=== PATIENT | female | born 1965 | race Caucasian/White ===

== ENCOUNTER → 2017-04-16 | Outpatient (CLI) | payer BC ==
[2017-04-16 13:29] VITALS: BP 142/82; PULSE 82; RESP 20; TEMP 98.6; BMI 36.1
--- NOTE | 2017-04-16 13:43 | P.BASOAP ---
Subjective Principal diagnosis: Morbid obesity Patient is on chronic steroids for an anti-inflammatory condition. She takes prednisone 10 mg daily. She has noticed a decrease in restriction. She has a history of a previous leaking band. The band tubing and port replaced. She thought she had about 5 mL of fluid in the band. She is asking for a band adjustment. Denies reflux. No vomiting. Weight has increased from a low of about 175-210. Objective - Vital Signs Vital signs: Vital Signs Temp 98.6 F 04/16/17 13:24 Pulse 82 04/16/17 13:24 Resp 20 04/16/17 13:24 BP 142/82 04/16/17 13:24 Pulse Ox Intake & Output 04/15/17 04/16/17 04/16/17 18:59 06:59 18:59 Weight 95.527 kg - Exam Abdomen: Soft, nontender, nondistended Assessment/Plan (1) Morbid obesity Narrative/Plan: Will proceed with band adjustment at this time. The patient's lap band port was palpated. The site was aseptically prepped. 1% lidocaine was infiltrated into the subcutaneous tissues through a diabetic syringe. The Mullins needle was advanced into the port. Aspiration took place. A total of 3 mL ml of fluid was present within the band. An additional 0.5 mL was added. Pressure was held and a sterile dressing was applied. Plan: Date: 04/16/17 Initial Weight: 95.527 kg Initial BMI: 36.1 Current Weight: 95.527 kg Current BMI: 36.1 Type of Surgery: Total Volume in Band: Previous Volume: Volume Removed: Volume Added: Band Size:
== END | disposition home or self-care (01) ==
LOC: BARWHC3 13:05 → MERGE 13:35
PROVIDERS: ATTEND Surgery
DX: E66.01 Morbid (severe) obesity due to excess calories (principal); Z68.36 Body mass index [BMI] 36.0-36.9, adult
CPT/HCPCS: 97803; 99202

== ENCOUNTER → 2017-05-03 | Outpatient (CLI) | payer BC ==
[2017-05-03 09:38] VITALS: BP 148/80; PULSE 79; RESP 16; TEMP 99; BMI 36.8
--- NOTE | 2017-05-03 11:36 | FL ---
EXAMINATION TYPE: FL barium swallow DATE OF EXAM: 05/03/2017 LAP BANDING ESOPHAGRAM CLINICAL HISTORY: Gastroesophageal reflux TECHNIQUE: Single contrast barium swallow examination was performed with targeted evaluation of the d istal esophagus and gastroesophageal junction for evaluation of the lap pad utilizing 2.6 minutes of fluoroscopy time. 27 images were saved. Thin barium was initially utilized and subsequently further d iluted as the patient stated she feels reflux with water and tea. COMPARISON: None. FINDINGS: Pre-procedure preventative maintenance technician image shows lap band in satisfactory position in proximal stomach ju st below the gastroesophageal junction. After the patient then drank oral contrast flowed readily kaiden ng the course of the esophagus into the gastric fundus. There is appropriate flow of contrast along the course of the lap band, there is no evidence of contrast extravasation to suggest leak. There is no significant gastric prolapse appreciated. No gastroesophageal reflux is seen. Supine images and d iluted barium were also utilized with no abnormality appreciated. IMPRESSION: No evidence of intraesophageal reflux, gastroesophageal reflux, leak, prolapse or obstruc tion/stricture.
--- NOTE | 2017-05-03 11:48 | P.BASOAP ---
Subjective Progress Note Date: 05/03/17 Principal diagnosis: Dysphagia Patient returns to the clinic after a lap band adjustment 3-4 weeks ago. She had 0.5 mL added at that time. She does take daily prednisone. Recently she has noticed increased dysphagia and heartburn. She was sent for esophagram shortly after arrival today for evaluation. The upper GI shows no evidence of significant obstruction. No prolapse or erosion were seen. Objective - Vital Signs Vital signs: Vital Signs Temp 99 F 05/03/17 09:29 Pulse 79 05/03/17 09:29 Resp 16 05/03/17 09:29 BP 148/80 05/03/17 09:29 Pulse Ox Intake & Output 05/02/17 05/03/17 05/03/17 18:59 06:59 18:59 Weight 97.25 kg - Exam Abdomen: Soft, nontender, nondistended Assessment/Plan (1) Dysphagia Narrative/Plan: Upper GI results discussed with the patient. We'll proceed with band adjustment. She will talk to her physician about switching to a liquid prednisone. If the loosening of the band does not help the patient's symptoms will consider adding Carafate as well. Also reserve upper endoscopy for persistent symptoms. The patient's lap band port was palpated. The site was aseptically prepped. 1% lidocaine was infiltrated into the subcutaneous tissues through a diabetic syringe. The Mullins needle was advanced into the port. Aspiration took place. A total of 1 ml of fluid was removed. Pressure was held and a sterile dressing was applied. Plan: Date: 05/03/17 Initial Weight: 95.527 kg Initial BMI: 36.1 Current Weight: 97.25 kg Current BMI: 36.8 Type of Surgery: Total Volume in Band: 2.5 Previous Volume: 3.5 Volume Removed: 1 Volume Added: Band Size:
== END | disposition home or self-care (01) ==
LOC: BARWHC3 08:56
PROVIDERS: ATTEND Surgery
DX: R13.10 Dysphagia, unspecified (principal)
CPT/HCPCS: 74220; 99213

== ENCOUNTER → 2017-10-29 | Outpatient (CLI) | payer BC ==
[2017-10-29 13:36] VITALS: BP 138/79; PULSE 80; RESP 16; TEMP 98.7; BMI 37.2
--- NOTE | 2017-10-29 15:51 | P.BASOAP ---
Subjective Progress Note Date: 10/29/17 Principal diagnosis: Morbid obesity Patient returns for evaluation. Last seen in April. At that time her band was loosened from 3.5-2.5 mL. She still takes prednisone daily. She tried liquid prednisone without success. She believes she is too loose at this point. Would like an adjustment. 3 pound weight gain since last visit. Objective - Vital Signs Vital signs: Vital Signs Temp 98.7 F 10/29/17 13:29 Pulse 80 10/29/17 13:29 Resp 16 10/29/17 13:29 BP 138/79 10/29/17 13:29 Pulse Ox Intake & Output 10/28/17 10/29/17 10/29/17 18:59 06:59 18:59 Weight 98.43 kg - Exam Abdomen: Soft, nontender, nondistended Assessment/Plan (1) Morbid obesity Narrative/Plan: Will proceed with LAP-BAND adjustment at this time.The patient's lap band port was very difficult to palpate. I in fact tried 3 separate locations before I identified the site of the port. For future reference the port was at the same level as a circular 1 cm scar in the right upper quadrant laterally midway between that scar and the midline. The site was aseptically prepped. 1% lidocaine was infiltrated into the subcutaneous tissues through a diabetic syringe. The Mullins needle was advanced into the port. Aspiration took place. A total of 0.5 ml of fluid was added for a total of 3 mL. Pressure was held and a sterile dressing was applied. Plan: Date: 10/29/17 Initial Weight: 95.527 kg Initial BMI: 36.1 Current Weight: 98.43 kg Current BMI: 37.2 Type of Surgery: Total Volume in Band: 3.0 Previous Volume: 2.5 Volume Removed: Volume Added: 0.5 Band Size:
== END | disposition home or self-care (01) ==
LOC: BARWHC3 12:47
PROVIDERS: ATTEND Surgery
DX: Z48.815 Encounter for surgical aftercare following surgery on the digestive system (principal); E66.01 Morbid (severe) obesity due to excess calories; Z68.37 Body mass index [BMI] 37.0-37.9, adult; Z79.899 Other long term (current) drug therapy
CPT/HCPCS: 99212

== ENCOUNTER → 2018-10-11 | Outpatient (CLI) | payer OTHER ==
[2018-10-11 11:54] LABS: HCT 43.6 % (34.0-46.0); HGB 14.3 gm/dL (11.4-16.0); MCH 30.8 pg (25.0-35.0); MCHC 32.8 g/dL (31.0-37.0); MCV 93.8 fL (80.0-100.0); Mean Platelet Volume 6.3; Platelet Count 274 k/uL (150-450); RBC 4.65 m/uL (3.80-5.40); RDW 13.5 % (11.5-15.5); WBC 12.2 k/uL (3.8-10.6)
[2018-10-11 17:21] LABS: ALT 29 U/L (8-44); AST 22 U/L (13-35); Albumin/Globulin Ratio 2.14 (1.60-3.17); Alkaline Phosphatase 54 U/L (41-126); Bilirubin, Conjugated <0.20 mg/dL (0.20-0.40); Carbon Dioxide 30.9 mmol/L (21.6-31.8); Chloride 104 mmol/L (96-109); Globulin 2.1 g/dL (1.6-3.3); Potassium 3.8 mmol/L (3.5-5.5); Sodium 142 mmol/L (135-145); Total Bilirubin 0.3 mg/dL (0.3-1.2); Total Protein 6.6 g/dL (6.2-8.2)
[2018-10-11 22:40] LABS: Hemoglobin A1C 6.1 % (4.0-6.0)
== END | disposition home or self-care (01) ==
LOC: LABWHC1 11:08
PROVIDERS: ATTEND Internal Medicine
DX: E11.9 Type 2 diabetes mellitus without complications (principal); I10 Essential (primary) hypertension; E03.9 Hypothyroidism, unspecified
CPT/HCPCS: 36415; 80051; 80076; 82565; 83036; 84439; 84443; 84520; 85027

== ENCOUNTER → 2018-10-21 | Outpatient (CLI) | payer OTHER ==
--- NOTE | 2018-10-21 08:35 | CT ---
EXAMINATION TYPE: CT lumbar spine w con DATE OF EXAM: 10/21/2018 COMPARISON: None HISTORY: 53-year-old female Low back pain for 15 years TECHNIQUE: Contiguous axial scanning of the lumbar spine performed with IV Contrast, patient injected with 100 mL of Isovue 300. Coronal/sagittal reconstructions performed. CT DLP: 1084.8 mGycm Automated exposure control for dose reduction was used. FINDINGS: Indeterminate 1 cm nodule left adrenal gland, statistically, represents a benign adrenal adenoma. Oth erwise, no prevertebral or paravertebral soft tissue abnormality seen. Mild degenerative changes at the SI joints. Postsurgical changes of L5-S1 posterior and interbody fusion. There is mature interbody bony ankylosi s at this level. Left-sided laminotomy. Hypertrophic facet arthropathy above the fusion as well as bulging discs throughout the remainder of the lumbar spine.. Vertebral body heights are preserved and alignment is maintained. At L2-L3, there is diffuse disc bulge impressing on the ventral thecal sac. This may cause mild narro wing of the spinal canal. There is minimal bilateral inferior neuroforaminal narrowing. Additional fa cet arthropathy. At L3-L4, mild disc bulge and facet degenerative change. Changes result in mild bilateral neuroforami nal stenosis without spinal canal stenosis. At L4-L5, above the fusion, mild bulging disc with hypertrophic facet arthropathy. Changes result in [id number] right and minimal left neuroforaminal narrowing. No spinal canal stenosis evident. At L5-S1, there is bony hyperostosis with moderate narrowing of the bilateral neuroforamen but no obv ious nerve root impingement. IMPRESSION: 1. STATUS POST L5-S1 POSTERIOR AND INTERBODY FUSION. THERE IS MATURE BONY ANKYLOSIS PRESENT BETWEEN T HE VERTEBRAL BODIES. LEFT-SIDED LAMINOTOMY. BONY HYPEROSTOSIS MODERATELY NARROWS THE BILATERAL NEURAL FORAMEN. HOWEVER, THERE IS NO OBVIOUS NERVE ROOT IMPINGEMENT HERE. 2. FACET ARTHROPATHY IN DISC BULGING THROUGHOUT THE REMAINDER OF THE LUMBAR SPINE. AT L4-L5, THIS CON TRIBUTES TO A MILD TO MODERATE RIGHT NEUROFORAMINAL STENOSIS. MILD BILATERAL NEURAL FORAMINAL STENOSI S AT L3-L4. 3. POSSIBLE MILD SPINAL CANAL STENOSIS AT L2-L3. 4. A 1 CM NODULE OF THE LEFT ADRENAL GLAND IS NONSPECIFIC BUT STATISTICALLY REPRESENTS A BENIGN ADREN AL ADENOMA. [address] FOLLOW-UP CT ABDOMEN CAN BE PERFORMED TO REASSESS.
== END | disposition home or self-care (01) ==
LOC: RADCTMAIN 06:53
PROVIDERS: ATTEND Internal Medicine
DX: M48.061 Spinal stenosis, lumbar region without neurogenic claudication (principal); M51.26 Other intervertebral disc displacement, lumbar region; M46.86 Other specified inflammatory spondylopathies, lumbar region; M48.17 Ankylosing hyperostosis [Forestier], lumbosacral region; M43.26 Fusion of spine, lumbar region; Z98.1 Arthrodesis status; Z88.0 Allergy status to penicillin; Z88.2 Allergy status to sulfonamides; Z88.5 Allergy status to narcotic agent
CPT/HCPCS: 72132; Q9967

== ENCOUNTER → 2018-12-22 | Outpatient (CLI) | payer OTHER ==
[2018-12-18 14:43] VITALS: BMI 34.3
[2018-12-22 13:13] VITALS: BP 167/82; PULSE 79; RESP 16
--- NOTE | 2018-12-22 13:33 | P.PAINCN ---
History of Present Illness - Reason for Consult Consult date: 12/22/18 - History of Present Illness Sanna is a 52-year-old female presents today as an initial consult. She presents today with a chief complaint of low back pain, coccygeal pain, as well as peripheral neuropathy. She reports she's had this pain for many years. She has a history of low back surgery about 10 years ago and had L5-S1 fusion. She reports that the fusion significantly improved her overall back pain. She's con tinues to have pain now below the level of the fusion over the hips. She has pain in the tailbone area which she reports she had a fall many years back. His had injections for her coccydynia in the past which were helpful. She's had history of peripheral neuropathy for many years unsure of the reason why. She is not diabetic. She has been on chronic prednisone therapy and takes 9 mg a day for spondyloarthropathy. She reports that she is unable to work full-time and works from home now secondary to her pain. She does not use pain medications. This point she denies a significant bowel or bladder incontinence. Denies any lower extremity weakness. She has been in physical therapy in the past and has not been there recently but she reports it did not help very much. 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, neuropathy yuliya feet, hx of thyroid ca, radiation 2000 History of Any Multi-Drug Resistant Organisms: None Reported Past Surgical History: Back Surgery, Bariatric Surgery, Section, Orthopedic Surgery Additional Past Surgical History / Comment(s): Epidural pain shots, right heal surgery, 1980 lap band, panniculectomy 2011, thyroidectomy, back surgery rods and screws 2009 Past Anesthesia/Blood Transfusion Reactions: Previous Problems w/ Anesthesia Additional Past Anesthesia/Blood Transfusion Reaction / Comm: "versed makes me stay awake for days" Smoking Status: Never smoker - Past Family History Mother Family Medical History: No Reported History Medications and Allergies Home Medications Medication Instructions Recorded Confirmed Type Metoprolol Succinate (ER) [Toprol 100 mg PO DAILY 04/17/17 12/22/18 History XL] Milnacipran HCl [Savella] 12.5 mg PO BID 04/17/17 12/22/18 History Olmesartan Medoxomil [Benicar] 40 mg PO DAILY 04/17/17 12/22/18 History Levothyroxine Sodium [Synthroid] 175 mcg PO DAILY 12/18/18 12/22/18 History cloNIDine HCL [Catapres] 0.1 mg PO BID 12/18/18 12/22/18 History predniSONE 9 mg PO DAILY 12/18/18 12/22/18 History valACYclovir HCL [Valacyclovir] 1,000 mg PO DAILY 12/18/18 12/22/18 History traMADol HCL [Ultram] 50 mg PO DAILY 12/22/18 12/22/18 History Allergies Allergy/AdvReac Type Severity Reaction Status Date / Time adhesive tape Allergy blisters Verified 12/22/18 13:02 Penicillins Allergy Rash/Hives Verified 12/22/18 13:02 Sulfa (Sulfonamide Allergy Rash/Hives Verified 12/22/18 13:02 Antibiotics) Physical Exam Vitals: Vital Signs Pulse Resp BP Pulse Ox 12/22/18 13:04 79 16 167/82 98 General: Awake and alert oriented 3 no distress Respiratory exam: No audible wheezing no accessory muscle usage Cardiovascular exam: regular rate, palpable bilateral pulses, no lower extremity edema Abdominal exam: No distention nontender to palpation Cervical spine: Normal alignment, Spurling's negative, facet loading negative, Instructor Ballroom Dancing strength is 5/5, coley negative Lumbar spine: Surgical scars are well-healed, Loss of lumbar lordosis, normal alignment, tender to palpation over bilateral paraspinal muscles, facet loading is positive bilaterally. Straight leg raise is negative. Limited range of motion due to pain with flexion, extension and side bending. Sacroiliac joints: There is tenderness to palpation over bilateral SI joints, Javon's test is positive, Gaenslen's positive. Coccyx: She has pain over the coccyx. He is tender to palpation, there is no movement of the coccyx noted. There is no erythema or fluctuance Neuro exam: Normal sensation in bilateral upper extremities, deep tendon reflexes are 2+ bilateral upper extremities. Normal sensation in bilateral lower extremities. Deep tendon reflexes are 2+ in lower extremities Psych exam: Cooperative, appropriate mood Assessment and Plan Assessment: #1 sacroiliitis #2 coccydynia #3 lumbar spondylosis #4 peripheral neuropathy Plan: Long discussion with the patient regarding her overall symptoms. I believe this point majority of her pain is coming from her sacroiliac joints. I believe the coccydynia is unrelated. We discussed doing SI joint injections bilaterally first and and figuring out how much of her pain is relieved. After that we will proceed to treating her coccydynia. I discussed doing a bilateral coccygeal nerve block and potentially radiofrequency ablation if there is only transient relief. As for peripheral neuropathy I've advised her to trial alpha lipoic acid supplementation 600 mg daily for at least one month and see how much improvement she gets. I've advised her to see a neurologist to get a full workup for neuropathy as well. She has had an EMG and does not have the report with her as of yet PQRS Measure Charge Sheet PQRS Narrative: Smoking Status Never smoker Do You Want the Pneumonia Vaccine Up to Date Vaccine AT THIS TIME? Blood Pressure 167/82 Pain Intensity [Lower Back] 7 Scale Used Numeric (1 - 10) Hx Alcohol Use (MH) No Home Medications: Ambulatory Orders Metoprolol Succinate (ER) [Toprol XL] 100 mg PO DAILY 04/17/17 Milnacipran HCl [Savella] 12.5 mg PO BID 04/17/17 Olmesartan Medoxomil [Benicar] 40 mg PO DAILY 04/17/17 Levothyroxine Sodium [Synthroid] 175 mcg PO DAILY 12/18/18 cloNIDine HCL [Catapres] 0.1 mg PO BID 12/18/18 predniSONE 9 mg PO DAILY 12/18/18 valACYclovir HCL [Valacyclovir] 1,000 mg PO DAILY 12/18/18 traMADol HCL [Ultram] 50 mg PO DAILY 12/22/18
== END | disposition home or self-care (01) ==
LOC: PNWHC3 12:05
PROVIDERS: ATTEND Hospitalist
DX: M46.1 Sacroiliitis, not elsewhere classified (principal); M47.816 Spondylosis without myelopathy or radiculopathy, lumbar region; M53.3 Sacrococcygeal disorders, not elsewhere classified; G62.9 Polyneuropathy, unspecified; I10 Essential (primary) hypertension; Z85.850 Personal history of malignant neoplasm of thyroid; Z92.3 Personal history of irradiation; Z98.84 Bariatric surgery status; Z79.891 Long term (current) use of opiate analgesic; Z79.52 Long term (current) use of systemic steroids; Z79.899 Other long term (current) drug therapy; Z88.0 Allergy status to penicillin; Z88.2 Allergy status to sulfonamides; Z91.048 Other nonmedicinal substance allergy status
CPT/HCPCS: 99211

== ENCOUNTER 2018-12-28 12:42 | Emergency (ER) | payer OTHER ==
[2018-12-28 13:15] VITALS: BP 150/89; PULSE 79; RESP 18; TEMP 98.8
[2018-12-28] MEDS ORDERED: LIDOCAINE 1% INJ 10MG/ML (20 ML MDV) SQ ONE (14:06)
--- NOTE | 2018-12-28 15:00 | XR ---
EXAMINATION TYPE: XR hand limited RT DATE OF EXAM: 12/28/2018 COMPARISON: 07/16/2013 HISTORY: Laceration 2 views were obtained. Metacarpals are intact. There is some narrowing of the DIP joint spaces. There are no erosions. There is no subluxation. There is no evidence of radiopaque foreign body. : IMPRESSION: No fracture seen. Minor degenerative changes. No change compared to old exam.
--- NOTE | 2018-12-28 15:03 | ED ---
Wound/Laceration HPI - General Chief Complaint: Wound/Laceration Stated Complaint: rt middle finger lac Time Seen by Provider: 12/28/18 13:42 Source: patient Mode of arrival: ambulatory Limitations: no limitations - History of Present Illness Initial Comments: 53-year-old female presenting for right middle finger laceration. States she cut it on a clean knife. She states it is superficial however the distal aspect appears deeper she was not sure she needed sutures. Patient states tetanus is up-to-date. She denies any limitations range of motion numbness tingling or loss sensation. Denies any other areas of injury. Remaining review of systems negative upon arrival patient appears well - Related Data Home Medications Medication Instructions Recorded Confirmed Metoprolol Succinate (ER) [Toprol 100 mg PO DAILY 04/17/17 12/22/18 XL] Milnacipran HCl [Savella] 12.5 mg PO BID 04/17/17 12/22/18 Olmesartan Medoxomil [Benicar] 40 mg PO DAILY 04/17/17 12/22/18 Levothyroxine Sodium [Synthroid] 175 mcg PO DAILY 12/18/18 12/22/18 cloNIDine HCL [Catapres] 0.1 mg PO BID 12/18/18 12/22/18 predniSONE 9 mg PO DAILY 12/18/18 12/22/18 valACYclovir HCL [Valacyclovir] 1,000 mg PO DAILY 12/18/18 12/22/18 traMADol HCL [Ultram] 50 mg PO DAILY 12/22/18 12/22/18 Previous Rx's Medication Instructions Recorded Cephalexin [Keflex] 500 mg PO Q8H 5 Days #15 cap 12/28/18 Allergies Allergy/AdvReac Type Severity Reaction Status Date / Time adhesive tape Allergy blisters Verified 12/28/18 13:14 Penicillins Allergy Rash/Hives Verified 12/28/18 13:14 Sulfa (Sulfonamide Allergy Rash/Hives Verified 12/28/18 13:14 Antibiotics) Review of Systems ROS Statement: Those systems with pertinent positive or pertinent negative responses have been documented in the HPI. ROS Other: All systems not noted in ROS Statement are negative. 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, neuropathy yuliya feet, hx of thyroid ca, radiation 2000 History of Any Multi-Drug Resistant Organisms: None Reported Past Surgical History: Back Surgery, Bariatric Surgery, Section, Orthopedic Surgery Additional Past Surgical History / Comment(s): Epidural pain shots, right heal surgery, 1981 lap band, panniculectomy 2012, thyroidectomy, back surgery rods and screws 2009 Past Anesthesia/Blood Transfusion Reactions: Previous Problems w/ Anesthesia Additional Past Anesthesia/Blood Transfusion Reaction / Comment(s): "versed makes me stay awake for days" Past Psychological History: No Psychological Hx Reported Smoking Status: Never smoker Past Alcohol Use History: None Reported Past Drug Use History: None Reported - Past Family History Mother Family Medical History: No Reported History General Exam - General Exam Comments Initial Comments: General: The patient is awake and alert, in no distress, and does not appear acutely ill. Eye: Pupils are equal, round and reactive to light, extra-ocular movements are intact. No nystagmus. There is normal conjunctiva bilaterally. No signs of icterus. Cardiovascular: There is a regular rate and rhythm. No murmur, rub or gallop is appreciated. Respiratory: Lungs are clear to auscultation, respirations are non-labored, breath sounds are equal. No wheezes, stridor, rales, or rhonchi. Musculoskeletal: Normal ROM, no tenderness. Strength 5/5. Sensation intact. Pulses equal bilaterally 2+. Neurological: A&O x 3. CN II-XII intact, There are no obvious motor or sensory deficits. Coordination appears grossly intact. Speech is normal. Skin: Skin is warm and dry and no rashes. 1.7 cm laceration with skin flap of the right middle finger just distal to the PIP joint appear superficial no evidence of foreign body Psychiatric: Cooperative, appropriate mood & affect, normal judgment. Limitations: no limitations Course Vital Signs 12/28/18 12/28/18 13:13 15:27 Temperature 98.8 F 98.8 F Pulse Rate 79 79 Respiratory 18 18 Rate Blood Pressure 150/89 150/89 O2 Sat by Pulse 97 97 Oximetry Procedures - Laceration Laceration #1 Consent Obtained: verbal consent Indication: laceration Site: hand (Right middle finger) Size (cm): 2 Description: linear Depth: simple, single layer Anesthetic Used: lidocaine 1% Anesthesia Technique: local infiltration Amount (mls): 2 Pre-repair: wound explored, irrigated extensively, deep structures intact Type of Sutures: nylon Size of Sutures: 5-0 Number of Sutures: 3 Patient Tolerated Procedure: well, no complications Medical Decision Making - Medical Decision Making X-rays reveal no acute osseous injury. Laceration appears superficial however warrants sutures. No evidence of foreign body. No evidence of tendon injury isolated MTP DIP and PIP joints there is no decrease in strength. Patient is able to feel proximal and distal to injury site. Laceration was repaired. Tetanus is updated per patient. At this time feel patient is stable for discharge with outpatient primary care follow-up for evaluation of fall. Patient states she is on steroids chronically for an autoimmune disease. Patient is provided a perception for Keflex if she there are any signs of erythema that developed near this site of suture placement. Patient is agreeable with care plan and return for suture removal in 7-10 days. Patient was discharged appearing well Disposition Clinical Impression: Laceration of middle finger Disposition: HOME SELF-CARE Condition: Good Instructions (If sedation given, give patient instructions): Care For Your Stitches (ED), Laceration (ED) Additional Instructions: Please use medication as discussed. Please follow-up with family doctor in the next 2 days, return for suture removal in 7-10 days. Please return to emergency room if the symptoms increase or worsen or for any other concerns. Prescriptions: Cephalexin [Keflex] 500 mg PO Q8H 5 Days #15 cap Is patient prescribed a controlled substance at d/c from ED?: No Referrals: Isabella Price MD [Primary Care Provider] - 1-2 days Time of Disposition: 15:02
== END 2018-12-28 15:26 | disposition home or self-care (01) ==
LOC: EC 12:42
DX: S61.212A Laceration without foreign body of right middle finger without damage to nail, initial encounter (principal); I10 Essential (primary) hypertension; Z85.850 Personal history of malignant neoplasm of thyroid; Z79.52 Long term (current) use of systemic steroids; Z79.890 Hormone replacement therapy; Z79.899 Other long term (current) drug therapy; Z88.0 Allergy status to penicillin; Z88.2 Allergy status to sulfonamides; Z91.048 Other nonmedicinal substance allergy status; W26.0XXA Contact with knife, initial encounter
CPT/HCPCS: 73120; 99282; 12001; J2001

== ENCOUNTER 2019-04-08 09:33 | Emergency (ER) | payer OTHER ==
[2019-04-08 09:39] VITALS: TEMP 97.3
[2019-04-08] MEDS ORDERED: diphenhydrAMINE 50 MG/ML 1 ML VIAL IVP STA (09:59)
[2019-04-08] MEDS ORDERED: ALBUTEROL NEBULIZED 2.5 MG/3 ML INHALATION STA (09:59)
[2019-04-08] MEDS ORDERED: methylPREDNISolone SOD SUCCI 125 MG/2 ML VIAL IV STA (09:59)
--- NOTE | 2019-04-08 10:01 | ED ---
Allergic Reaction HPI - General Chief complaint: Allergic Reaction Stated complaint: bee stings/rash & chest heaviness Time Seen by Provider: 04/08/19 09:49 Source: patient, RN notes reviewed, old records reviewed Mode of arrival: ambulatory Limitations: no limitations - History of Present Illness Initial Comments: Patient is a 53-year-old female presents emergency department today with chief complaint of ALLERGIC reaction to a bee sting approximately 30 minutes ago. Patient reports that she was stung on her right middle finger. Patient states that swollen. She states she is going to her doctor with a history of bad ALLERGIC reactions. Patient reports that she subsequently developed severe hives, started having some chest pain which prompted her to dress the emergency department set of her primary care doctors. Patient states it feels like she is coughing frequently but denies any specific shortness of breath or tongue swelling. - Related Data Home Medications Medication Instructions Recorded Confirmed Levothyroxine Sodium [Synthroid] 175 mcg PO DAILY 12/18/18 04/08/19 cloNIDine HCL [Catapres] 0.1 mg PO BID 12/18/18 04/08/19 predniSONE 8 mg PO DAILY 12/18/18 04/08/19 Metoprolol Succinate [Toprol Xl] 50 mg PO BID 04/08/19 04/08/19 Milnacipran HCl [Savella] 50 mg PO BID 04/08/19 04/08/19 Olmesartan/Hydrochlorothiazide 1 tab PO DAILY 04/08/19 04/08/19 [Olmesartan-Hctz 40-25 mg Tab] Previous Rx's Medication Instructions Recorded EPINEPHrine (Auto Inject) [Epipen] 0.3 mg IM ONCE PRN #2 pen 04/08/19 Famotidine [Pepcid] 20 mg PO DAILY #5 tablet 04/08/19 diphenhydrAMINE [Benadryl] 25 mg PO QID PRN #40 capsule 04/08/19 predniSONE 20 mg PO BID #10 tab 04/08/19 Allergies Allergy/AdvReac Type Severity Reaction Status Date / Time adhesive tape Allergy blisters Verified 04/08/19 09:47 morphine Allergy Unknown Verified 04/08/19 09:47 Penicillins Allergy Rash/Hives Verified 04/08/19 09:47 Sulfa (Sulfonamide Allergy Rash/Hives Verified 04/08/19 09:47 Antibiotics) Review of Systems ROS Statement: Those systems with pertinent positive or pertinent negative responses have been documented in the HPI. ROS Other: All systems not noted in ROS Statement are negative. 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, neuropathy yuliya feet, hx of thyroid ca, radiation 2000 History of Any Multi-Drug Resistant Organisms: None Reported Past Surgical History: Back Surgery, Bariatric Surgery, Section, Orthopedic Surgery Additional Past Surgical History / Comment(s): Epidural pain shots, right heal surgery, 1980 lap band, panniculectomy 2011, thyroidectomy, back surgery rods and screws 2009 Past Anesthesia/Blood Transfusion Reactions: Previous Problems w/ Anesthesia Additional Past Anesthesia/Blood Transfusion Reaction / Comment(s): "versed makes me stay awake for days" Past Psychological History: No Psychological Hx Reported Smoking Status: Never smoker Past Alcohol Use History: None Reported Past Drug Use History: None Reported - Past Family History Mother Family Medical History: No Reported History General Exam - General Exam Comments Initial Comments: Pleasant 53-year-old female. Alert and oriented 3. No significant distress. Limitations: no limitations General appearance: alert, in no apparent distress Head exam: Present: atraumatic, normocephalic, normal inspection Eye exam: Present: normal appearance, PERRL, EOMI. Absent: scleral icterus, conjunctival injection, periorbital swelling ENT exam: Present: normal exam, mucous membranes moist Neck exam: Present: normal inspection. Absent: tenderness, meningismus, lymphadenopathy Respiratory exam: Present: normal lung sounds bilaterally. Absent: respiratory distress, wheezes, rales, rhonchi, stridor Cardiovascular Exam: Present: regular rate, normal rhythm, normal heart sounds. Absent: systolic murmur, diastolic murmur, rubs, gallop, clicks GI/Abdominal exam: Present: soft, normal bowel sounds. Absent: distended, tenderness, guarding, rebound, rigid Extremities exam: Present: normal inspection, full ROM, normal capillary refill. Absent: tenderness, pedal edema, joint swelling, calf tenderness Back exam: Present: normal inspection Neurological exam: Present: alert, oriented X3, CN II-XII intact Psychiatric exam: Present: normal affect, normal mood Skin exam: Present: warm, dry, intact, normal color, rash (Diffuse hives over her arms and chest.) Course Vital Signs 04/08/19 04/08/19 04/08/19 09:36 10:13 10:23 Temperature 97.3 F L Pulse Rate 92 77 Respiratory 20 16 Rate Blood Pressure 172/80 O2 Sat by Pulse 97 98 Oximetry 04/08/19 04/08/19 04/08/19 10:24 11:06 12:02 Temperature Pulse Rate 77 77 82 Respiratory 16 Rate Blood Pressure 170/88 O2 Sat by Pulse 98 98 Oximetry - Reevaluation(s) Reevaluation #1: 04/08/19 12:34 Patient was reevaluated, has complete resolution of her hives and feels better like to be discharged home. Medical Decision Making - Medical Decision Making Patient's-year-old female presents restaurant today with ALLERGIC reaction to bee sting over her right middle finger. Finger swollen. She has normal Range Of Motion Is Limited Due To Swelling. She Has Diffuse Hives, Complaining of a Cough and [place] That She Was Wheezing. On Exam She Didn't Have Significant Wheezing. She Was Given Albuterol Treatment, Slight Medrol Benadryl. She Did Have Resolution of Her Symptoms and Reevaluate Feels Much Better. She Did State She Chest Discomfort, EKG Was Showed No Acute Changes Normal Troponin. Patient Was Informed of All Results and Discussed That Likely Just Related to ALLERGIC reaction. Discussed the Patient to be discharged with steroids Benadryl Pepcid and written for an EpiPen. Discussed that her next reaction could be a worsening reaction that would require EpiPen. Patient is agreeable to treatment plan will comply. Return parameters were discussed. - Lab Data Result diagrams: 04/08/19 09:55 04/08/19 09:55 Lab Results 04/08/19 04/08/19 04/08/19 Range/Units 09:55 09:55 09:55 WBC 9.0 (3.8-10.6) k/uL RBC 4.68 (3.80-5.40) m/uL Hgb 14.6 (11.4-16.0) gm/dL Hct 42.6 (34.0-46.0) % MCV 91.1 (80.0-100.0) fL MCH 31.2 (25.0-35.0) pg MCHC 34.3 (31.0-37.0) g/dL RDW 13.3 (11.5-15.5) % Plt Count 312 (150-450) k/uL Neutrophils % 59 % Lymphocytes % 33 % Monocytes % 5 % Eosinophils % 1 % Basophils % 1 % Neutrophils # 5.4 (1.3-7.7) k/uL Lymphocytes # 3.0 (1.0-4.8) k/uL Monocytes # 0.4 (0-1.0) k/uL Eosinophils # 0.1 (0-0.7) k/uL Basophils # 0.1 (0-0.2) k/uL PT (9.0-12.0) sec INR (<1.2) APTT (22.0-30.0) sec Sodium 138 (137-145) mmol/L Potassium 3.4 L (3.5-5.1) mmol/L Chloride 99 (98-107) mmol/L Carbon Dioxide 28 (22-30) mmol/L Anion Gap 11 mmol/L BUN 19 H (7-17) mg/dL Creatinine 0.88 (0.52-1.04) mg/dL Est GFR (CKD-EPI)AfAm 87 (>60 ml/min/1.73 sqM) Est GFR (CKD-EPI)NonAf 76 (>60 ml/min/1.73 sqM) Glucose 148 H (74-99) mg/dL Calcium 9.1 (8.4-10.2) mg/dL Total Bilirubin 0.5 (0.2-1.3) mg/dL AST 24 (14-36) U/L ALT 26 (9-52) U/L Alkaline Phosphatase 45 (38-126) U/L Troponin I <0.012 (0.000-0.034) ng/mL Total Protein 6.9 (6.3-8.2) g/dL Albumin 4.2 (3.5-5.0) g/dL 04/08/19 Range/Units 09:55 WBC (3.8-10.6) k/uL RBC (3.80-5.40) m/uL Hgb (11.4-16.0) gm/dL Hct (34.0-46.0) % MCV (80.0-100.0) fL MCH (25.0-35.0) pg MCHC (31.0-37.0) g/dL RDW (11.5-15.5) % Plt Count (150-450) k/uL Neutrophils % % Lymphocytes % % Monocytes % % Eosinophils % % Basophils % % Neutrophils # (1.3-7.7) k/uL Lymphocytes # (1.0-4.8) k/uL Monocytes # (0-1.0) k/uL Eosinophils # (0-0.7) k/uL Basophils # (0-0.2) k/uL PT 9.6 (9.0-12.0) sec INR 0.9 (<1.2) APTT 20.5 L (22.0-30.0) sec Sodium (137-145) mmol/L Potassium (3.5-5.1) mmol/L Chloride (98-107) mmol/L Carbon Dioxide (22-30) mmol/L Anion Gap mmol/L BUN (7-17) mg/dL Creatinine (0.52-1.04) mg/dL Est GFR (CKD-EPI)AfAm (>60 ml/min/1.73 sqM) Est GFR (CKD-EPI)NonAf (>60 ml/min/1.73 sqM) Glucose (74-99) mg/dL Calcium (8.4-10.2) mg/dL Total Bilirubin (0.2-1.3) mg/dL AST (14-36) U/L ALT (9-52) U/L Alkaline Phosphatase (38-126) U/L Troponin I (0.000-0.034) ng/mL Total Protein (6.3-8.2) g/dL Albumin (3.5-5.0) g/dL 04/08/19 10:31 EKG performed at 10-21 shows normal sinus rhythm left atrial nausea. Septal in farct age undetermined. Inferior infarct of undetermined. Ventricular rate 73 bpm. Verbal is 156 most seconds. QT duration is 76 most seconds. QT QTc is 410/451 ms. - Radiology Data Radiology results: report reviewed Disposition Clinical Impression: Allergic reaction Disposition: HOME SELF-CARE Condition: Good Instructions (If sedation given, give patient instructions): Anaphylaxis (ED) Additional Instructions: Please use medication as discussed. Remembered as to save 2 days of medication and her At-Home if there is Any further bee stings. Please follow up with family doctor if symptoms have not improved over the next two days. Please return to the emergency room if your symptoms increase or worsen or for any other concerns. Prescriptions: diphenhydrAMINE [Benadryl] 25 mg PO QID PRN #40 capsule PRN Reason: Itching EPINEPHrine (Auto Inject) [Epipen] 0.3 mg IM ONCE PRN #2 pen PRN Reason: Anaphylaxis Famotidine [Pepcid] 20 mg PO DAILY #5 tablet predniSONE 20 mg PO BID #10 tab Is patient prescribed a controlled substance at d/c from ED?: No Referrals: Isabella Price MD [Primary Care Provider] - 1-2 days Time of Disposition: 12:35
[2019-04-08 10:24] VITALS: RESP 16
[2019-04-08 10:25] LABS: Basophils # (A) 0.1 k/uL (0-0.2); Basophils % (A) 1 %; Eosinophils # (A) 0.1 k/uL (0-0.7); Eosinophils % (A) 1 %; HCT 42.6 % (34.0-46.0); HGB 14.6 gm/dL (11.4-16.0); Lymphocytes % (A) 33 %; MCH 31.2 pg (25.0-35.0); MCHC 34.3 g/dL (31.0-37.0); MCV 91.1 fL (80.0-100.0); Mean Platelet Volume 6.7; Monocytes # (A) 0.4 k/uL (0-1.0); Monocytes % (A) 5 %; Neutrophils # (A) 5.4 k/uL (1.3-7.7); Neutrophils % (A) 59 %; Platelet Count 312 k/uL (150-450); RBC 4.68 m/uL (3.80-5.40); RDW 13.3 % (11.5-15.5)
[2019-04-08 10:35] LABS: Albumin 4.2 g/dL (3.5-5.0); Calcium 9.1 mg/dL (8.4-10.2); Potassium 3.4 mmol/L (3.5-5.1); Total Bilirubin 0.5 mg/dL (0.2-1.3); Total Protein 6.9 g/dL (6.3-8.2)
[2019-04-08 10:50] LABS: INR 0.9 (<1.2); Prothrombin Time 9.6 sec (9.0-12.0)
[2019-04-08 10:54] LABS: Partial Thromboplastin Time 20.5 sec (22.0-30.0)
--- NOTE | 2019-04-08 11:11 | XR ---
EXAMINATION TYPE: XR chest 2V DATE OF EXAM: 04/08/2019 COMPARISON: Chest x-ray March 23, 2010. HISTORY: Chest heaviness. Cough and wheezing after bee sting injury. TECHNIQUE: Frontal and lateral views of the chest are obtained. FINDINGS: Elevation and eventration of anterior aspect right hemidiaphragm is more prominent from garrett or. There is right basilar linear atelectasis and/or scarring localized to the middle lobe on current study. Left lung is clear. No pleural effusion or pneumothorax. Lap band device epigastric region st able in position. The cardiac silhouette size is within normal limits. The osseous structures are intact. IMPRESSION: New elevation and eventration anterior aspect right hemidiaphragm with right middle lobe linear scarring and/or atelectasis
[2019-04-08 12:04] VITALS: BP 170/88; PULSE 82
[2019-04-08] MEDS ORDERED: FAMOTIDINE 20 MG/2 ML VIAL IV STA (12:38)
== END 2019-04-08 13:06 | disposition home or self-care (01) ==
LOC: EC 09:33
DX: T63.441A Toxic effect of venom of bees, accidental (unintentional), initial encounter (principal); R07.89 Other chest pain; I10 Essential (primary) hypertension; Z79.52 Long term (current) use of systemic steroids; Z79.890 Hormone replacement therapy; Z79.899 Other long term (current) drug therapy; Z88.5 Allergy status to narcotic agent; Z88.2 Allergy status to sulfonamides; Z88.0 Allergy status to penicillin; Z91.048 Other nonmedicinal substance allergy status; Z85.850 Personal history of malignant neoplasm of thyroid; Z92.3 Personal history of irradiation
CPT/HCPCS: 36415; 94640; 93005; 80053; 84484; 85025; 85610; 85730; 71046; 96374; 96375 ×2; 99285; J1200; J2930

== ENCOUNTER → 2020-05-03 | Outpatient (CLI) | payer OTHER ==
--- NOTE | 2020-05-03 16:54 | P.BASOAP ---
Subjective Progress Note Date: 05/03/20 Principal diagnosis: Morbid obesity Patient returns today complaining of persistent reflux. Her band was emptied recently in the office. She had a CAT scan performed in September showing some mild distal esophageal wall thickening. No prolapse or erosion seen on that study. Patient did have some relief with Protonix. Less relief recently with Prilosec. Still feels as if the band is somewhat tight. Does have food getting caught every once in a while. Weight 209 was 217 previously. Objective - Exam Abdomen: Soft, nontender, nondistended Assessment/Plan (1) Morbid obesity Narrative/Plan: 54-year-old female with GERD and dysphagia despite the band being empty. CAT scan showing evidence of esophagitis. We'll proceed with upper endoscopy. Following that we'll likely proceed with band removal. Plan: Date: Initial Weight: 95.527 kg Initial BMI: Current Weight: Current BMI: Type of Surgery: Total Volume in Band: 3.0 Previous Volume: Volume Removed: Volume Added: Band Size:
[2020-05-04 09:25] VITALS: BP 148/78; PULSE 71; TEMP 98; BMI 35.9
== END | disposition home or self-care (01) ==
LOC: BARWHC3 16:00
PROVIDERS: ATTEND Surgery
DX: Z46.51 Encounter for fitting and adjustment of gastric lap band (principal); E66.01 Morbid (severe) obesity due to excess calories; K20.90 Esophagitis, unspecified without bleeding; Z68.35 Body mass index [BMI] 35.0-35.9, adult
CPT/HCPCS: 99211

== ENCOUNTER 2020-06-14 09:12 | Day surgery (SDC) | payer OTHER ==
[2020-06-09 13:16] VITALS: BMI 36.0
[~2020-06-14 09:12] MED LIST: LACTATED RINGERS 1,000 ML IV SCH; LIDOCAINE 1% (10MG/ML) FOR IV START INTRADERMA PRN
[2020-06-14 09:30] VITALS: TEMP 97.3
--- NOTE | 2020-06-14 09:46 | P.GSHP ---
History of Present Illness H&P Date: 06/14/20 Chief Complaint: GERD, dysphagia Patient here today for upper endoscopy. Patient has a lap band and has had complaints of dysphagia and reflux. Her band was emptied. Still having issues. CAT scan showed some esophageal thickening. Past Medical History Past Medical History: Cancer, Hypertension Additional Past Medical History / Comment(s): undifferentiated spondyloarthropathy, neuropathy yuliya feet, hx of thyroid ca, radiation 2000, vomiting and esophagitis History of Any Multi-Drug Resistant Organisms: None Reported Past Surgical History: Back Surgery, Bariatric Surgery, Breast Surgery, Section, Orthopedic Surgery Additional Past Surgical History / Comment(s): Epidural pain shots, right heal surgery, 1980 lap band, panniculectomy 2011 and revision, thyroidectomy, back surgery rods and screws 2009, breast lift Past Anesthesia/Blood Transfusion Reactions: Previous Problems w/ Anesthesia Additional Past Anesthesia/Blood Transfusion Reaction / Comment(s): "versed makes me stay awake for days" states mother experiences same issue Past Psychological History: No Psychological Hx Reported Smoking Status: Never smoker Past Alcohol Use History: None Reported Past Drug Use History: None Reported - Past Family History Mother Family Medical History: No Reported History Medications and Allergies Home Medications Medication Instructions Recorded Confirmed Type Levothyroxine Sodium [Synthroid] 175 mcg PO DAILY 12/18/18 06/09/20 History predniSONE 7 mg PO DAILY 12/18/18 06/09/20 History EPINEPHrine (Auto Inject) [Epipen] 0.3 mg IM ONCE PRN #2 pen 04/08/19 06/09/20 Rx Metoprolol Succinate [Toprol Xl] 100 mg PO HS 04/08/19 06/09/20 History Olmesartan/Hydrochlorothiazide 1 tab PO DAILY 04/08/19 06/09/20 History [Olmesartan-Hctz 40-25 mg Tab] metFORMIN HCL [Glucophage] 500 mg PO DAILY 06/09/20 06/09/20 History Allergies Allergy/AdvReac Type Severity Reaction Status Date / Time adhesive tape Allergy blisters Verified 06/09/20 13:04 morphine Allergy Unknown Verified 06/09/20 13:04 Penicillins Allergy Rash/Hives Verified 06/09/20 13:04 Sulfa (Sulfonamide Allergy Rash/Hives Verified 06/09/20 13:04 Antibiotics) wasp Allergy Anaphylaxis Uncoded 06/09/20 13:04 Surgical - Exam Vital Signs Temp Pulse Resp BP Pulse Ox 97.3 F L 70 20 112/60 94 L 06/14/20 09:28 06/14/20 09:28 06/14/20 09:28 06/14/20 09:28 06/14/20 09:28 Physical exam: General: Well-developed, well-nourished HEENT: Normocephalic, sclerae nonicteric Abdomen: Nontender, nondistended Extremities: No edema Neuro: Alert and oriented Assessment and Plan (1) Dysphagia Narrative/Plan: Will proceed with upper endoscopy at this time. Current Visit: No Status: Acute Code(s): R13.10 - DYSPHAGIA, UNSPECIFIED SNOMED Code(s): 95932254
[2020-06-14] MEDS ORDERED: MIDAZOLAM 2 MG/2 ML VIAL ONE (09:49)
[2020-06-14] MEDS ORDERED: LIDOCAINE 1% INJ 10MG/ML (20 ML MDV) ONE (09:49)
[2020-06-14] MEDS ORDERED: fentaNYL (PF) 50 MCG/ML 2 ML AMP ONE (09:49)
[2020-06-14] MEDS ORDERED: PROPOFOL 10 MG/ML 20 ML VIAL IV ONE (09:49)
[2020-06-14 09:52] LABS: Glucose,Whole Blood 95 mg/dL (75-99)
--- NOTE | 2020-06-14 10:01 | P.PCN ---
Date of Procedure: 06/14/20 Procedure(s) Performed: Preoperative Dx: GERD, dysphagia Postoperative Dx: Mild gastritis, mild distal esophagitis Procedure: EGD with Bx Anesthesia: Sedation Endoscopist: Dr. Ayala Specimens: Antrum, distal esophagus Endoscopic Procedure: The patient was on the endoscopy table in the left decubitus position. The Olympus gastroscope was inserted into the oropharynx and passed under direct visualization to the region of the third portion of the duodenum. From that point the scope was slowly withdrawn inspecting all surfaces carefully. There were no neoplastic inflammatory or polypoid lesions throughout the duodenum. The pylorus was widely patent. The stomach was carefully inspected. There was gastritis present. A biopsy of the antrum took place to rule out H. pylori. Retroflexion revealed a normal band plication. There is no visible hiatal hernia. The esophagus was then carefully examined. There was mild distal esophagitis present. A single small linear erosion was identified less than 1 cm in length. A biopsy was taken. The remainder the esophagus appear normal. The patient was then taken to the recovery room in stable condition per anesthesia guidelines. Recommendations: Continue antiacid therapy. Await biopsy results. Schedule band removal.
[2020-06-14 10:06] VITALS: RESP 16
[2020-06-14 10:18] VITALS: BP 109/63; PULSE 63
== END 2020-06-14 10:40 | disposition home or self-care (01) ==
LOC: ORWHC2ENDO 09:12
PROVIDERS: ATTEND Surgery
DX: K29.50 Unspecified chronic gastritis without bleeding (principal); K21.00 Gastro-esophageal reflux disease with esophagitis, without bleeding; I10 Essential (primary) hypertension; M47.9 Spondylosis, unspecified; G62.9 Polyneuropathy, unspecified; Z85.850 Personal history of malignant neoplasm of thyroid; Z98.890 Other specified postprocedural states; E07.9 Disorder of thyroid, unspecified; Z98.891 History of uterine scar from previous surgery; Z92.3 Personal history of irradiation; Z98.84 Bariatric surgery status; E89.0 Postprocedural hypothyroidism; Z79.52 Long term (current) use of systemic steroids; Z79.899 Other long term (current) drug therapy; Z91.038 Other insect allergy status; Z88.5 Allergy status to narcotic agent; Z88.0 Allergy status to penicillin; Z88.2 Allergy status to sulfonamides; Z91.09 Other allergy status, other than to drugs and biological substances
CPT/HCPCS: 88305; 43239; J2250; J2001; J3010; J2704

== ENCOUNTER 2021-03-20 09:18 | Day surgery (SDC) | payer BC, OTHER ==
[2021-03-15 10:14] VITALS: BMI 36.0
--- NOTE | 2021-03-20 08:47 | P.GSHP ---
History of Present Illness H&P Date: 03/20/21 Chief Complaint: lap band intolerance, GERD Patient here today for lap band removal. Patient was evaluated late last year. Had complaints of persistent acid reflux and intermittent vomiting episodes. Mild discomfort. He underwent upper endoscopy showing mild gastritis and mild distal esophagitis. Despite emptying the patient's band her symptoms persisted. The patient is requesting her band be removed at this point. Past Medical History Past Medical History: Cancer, Diabetes Mellitus, Hypertension, Thyroid Disorder Additional Past Medical History / Comment(s): Autoimmune disorder., neuropathy feet- Possible mortons neuroma., back pain., hx of thyroid cancer with surgery & radiation 2000, Lap band- has problems swallowing with hx vomiting and esophagitis., States COVID and was hospitalized for 9 days with episode of V- Tach and elevated blood sugars (above 400) since COVID and also with prednisone. History of Any Multi-Drug Resistant Organisms: None Reported Past Surgical History: Back Surgery, Bariatric Surgery, Breast Surgery, Section, Orthopedic Surgery Additional Past Surgical History / Comment(s): Epidural pain shots, right heel surgery, 1980 lap band, panniculectomy 2011 ,revision lap band, thyroidectomy, back surgery rods and screws 2009, breast lift Past Anesthesia/Blood Transfusion Reactions: Previous Problems w/ Anesthesia Additional Past Anesthesia/Blood Transfusion Reaction / Comment(s): "versed makes me stay awake for days" states mother & grandfather experiences same issue Past Psychological History: No Psychological Hx Reported Smoking Status: Never smoker Past Alcohol Use History: None Reported Past Drug Use History: None Reported - Past Family History Mother Family Medical History: No Reported History Medications and Allergies Home Medications Medication Instructions Recorded Confirmed Type Levothyroxine Sodium [Synthroid] 175 mcg PO DAILY 12/18/18 03/15/21 History predniSONE 7 mg PO DAILY 12/18/18 03/15/21 History Metoprolol Succinate [Toprol Xl] 100 mg PO HS 04/08/19 03/15/21 History Olmesartan/Hydrochlorothiazide 1 tab PO DAILY 04/08/19 03/15/21 History [Olmesartan-Hctz 40-25 mg Tab] metFORMIN HCL [Glucophage] 500 mg PO AC-BID 06/09/20 03/15/21 History Levocetirizine Dihydrochloride 5 mg PO DAILY 03/15/21 03/15/21 History [Xyzal] hydrALAZINE HCL 25 mg PO BID 03/15/21 03/15/21 History Allergies Allergy/AdvReac Type Severity Reaction Status Date / Time adhesive tape Allergy blisters Verified 03/15/21 09:20 morphine Allergy Rash/Hives Verified 03/15/21 09:20 Penicillins Allergy Rash/Hives Verified 03/15/21 09:20 Sulfa (Sulfonamide Allergy Rash/Hives Verified 03/15/21 09:20 Antibiotics) wasp Allergy Anaphylaxis Uncoded 03/15/21 09:20 Surgical - Exam Physical exam: General: Well-developed, well-nourished HEENT: Normocephalic, sclerae nonicteric Abdomen: Nontender, nondistended Extremities: No edema Neuro: Alert and oriented Assessment and Plan (1) Dysphagia Narrative/Plan: 55-year-old female with lap band intolerance consisting of GERD, dysphagia, and vomiting. We'll proceed with laparoscopic lap band removal, possible open. The risks of bleeding, infection, stenosis, stricture, leak, abscess, fistula formation, peritonitis, weight gain, reflux, vomiting, conversion to an open procedure, DE, PE, DVT, and were discussed. The patient understands and wishes to proceed. Status: Acute Code(s): R13.10 - DYSPHAGIA, UNSPECIFIED SNOMED Code(s): 407 44558
[~2021-03-20 09:18] MED LIST changes: +DEXAMETHASONE SOD PHOSPHATE 4 MG/ML 1 ML VIAL IV ONE; -LIDOCAINE 1% (10MG/ML) FOR IV START INTRADERMA PRN; +ONDANSETRON 4 MG/2 ML VIAL IVP ONE
[2021-03-20 09:33] VITALS: TEMP 97.8
[2021-03-20 09:39] LABS: Glucose,Whole Blood 112 mg/dL (75-99)
[2021-03-20] MEDS ORDERED: LACTATED RINGERS 1,000 ML IV ONE ×2 (09:43→11:41)
[2021-03-20] MEDS ORDERED: HEPARIN SODIUM,PORCINE 5,000 UNIT/ML 1 ML VIAL SQ ONE (10:07)
[2021-03-20] MEDS ORDERED: LIDOCAINE 1% INJ 10MG/ML (20 ML MDV) SQ ONE ×3 (10:20→10:56)
[2021-03-20] MEDS ORDERED: fentaNYL (PF) 50 MCG/ML 2 ML AMP ONE (10:24)
[2021-03-20] MEDS ORDERED: GLYCOPYRROLATE 0.2 MG/ML 2 ML VIAL ONE (10:24)
[2021-03-20] MEDS ORDERED: ePHEDrine SULFATE/0.9% NACL/PF 50 MG/5 ML SYRINGE IV ONE (10:24)
[2021-03-20] MEDS ORDERED: ROCURONIUM 10 MG/ML (5 ML VIAL) IV ONE (10:24)
[2021-03-20] MEDS ORDERED: NEOSTIGMINE 1 MG/ML 10 ML VIAL ONE (10:24)
[2021-03-20] MEDS ORDERED: PROPOFOL 10 MG/ML 20 ML VIAL IV ONE (10:24)
[2021-03-20] MEDS ORDERED: SUCCINYLCHOLINE CHLORIDE 100 MG/5 ML SYR IV ONE (10:24)
[2021-03-20] MEDS ORDERED: NALOXONE 0.4 MG/ML 1 ML VIAL IV PRN (11:46)
--- NOTE | 2021-03-20 11:51 | P.OP ---
Date of Procedure: 03/20/21 Procedure(s) Performed: PREOPERATIVE DIAGNOSIS: Band intolerance/abdominal pain POSTOPERATIVE DIAGNOSIS: Same PROCEDURE: Laparoscopic lap band removal SURGEON: Lucy EBL: Minimal ANESTHESIA: General COMPLICATIONS: None OPERATIVE PROCEDURE: The patient was brought and placed on the operating room table in the supine position. The patient was placed under general anesthesia at that time. The patient was then placed in lithotomy. The abdomen was prepped and draped in the usual sterile fashion. The patient had a previous abdominoplasty. The port incision was quite inferior. I could not palpate the patient's port to identify its appropriate location. A 5 mm optical trocar was used to enter the peritoneal cavity. As we began insufflating the abdominal cavity it was evident that we were beneath the omentum in the lesser sac. The camera was gradually withdrawn. There were no adhesions between the thickened omentum and the abdominal wall. The tract that we had gone through the omentum was approximately 1.5 cm thick. I could not visualize any bowel. The transverse colon was difficult to visualize with certainty but was thought to be inferior to that location by a few centimeters. At that point I was able to see that the port was entering the abdominal cavity from the right upper quadrant. I could not visualize a previous scar from the prior port revision that had placed the port in that location. A small incision was made overlying the port. The subcutaneous tissues were divided using electrocautery. The port was easily excised with the use of cautery. Through that catheter entrance site the 15 mm trocar was placed. A right subxiphoid 5 mm trocar was placed. This was then removed and the medium Francesca hook was used to elevate the left lobe of the liver anteriorly. An additional 5 mm trocar was placed under direct visualization in the left lateral upper quadrant. There were adhesions to the band in the buckle that were lysed using electrocautery. The band was then cut using the laparoscopic bindu. The band was then removed easily in 2 portions through the 15 mm trocar site. The stomach itself was inspected and revealed no evidence of erosion or prolapse. The 15 mm trocar site was closed using a [id number] 0 Vicryl suture using the Scooter Dugan technique. The subcutaneous tissues at the port site was closed using a 3-0 Vicryl suture. The skin at all 4 incision sites were closed using 4-0 Monocryl sutures. Skin glue was then applied. DISPOSITION: Stable to recovery room
[2021-03-20] MEDS: HYDROmorphone 0.5 MG/0.5 ML SYRINGE IVP PRN ×2 (12:05→12:20)
[2021-03-20 12:34] VITALS: RESP 16
[2021-03-20 14:06] VITALS: BP 124/65; PULSE 81
== END 2021-03-20 14:24 | disposition home or self-care (01) ==
LOC: OR 09:18
PROVIDERS: ATTEND Surgery
DX: K95.09 Other complications of gastric band procedure (principal); R10.9 Unspecified abdominal pain; R13.10 Dysphagia, unspecified; E66.01 Morbid (severe) obesity due to excess calories; I10 Essential (primary) hypertension; G57.60 Lesion of plantar nerve, unspecified lower limb; E11.42 Type 2 diabetes mellitus with diabetic polyneuropathy; D89.89 Other specified disorders involving the immune mechanism, not elsewhere classified; Z79.84 Long term (current) use of oral hypoglycemic drugs; Z79.52 Long term (current) use of systemic steroids; Z79.899 Other long term (current) drug therapy; Y73.2 Prosthetic and other implants, materials and accessory gastroenterology and urology devices associated with adverse incidents; Z85.850 Personal history of malignant neoplasm of thyroid; Z86.16 Personal history of COVID-19; E07.9 Disorder of thyroid, unspecified
CPT/HCPCS: 43772; 84132; J1644; J1100; J2710; J0690; J2405; J2001; J3010; J0330; J2704; J1170

== ENCOUNTER → 2022-01-06 | Outpatient (CLI) | payer BC ==
--- NOTE | 2022-01-07 11:29 | XR ---
Left leg HISTORY: Trauma and pain Frontal lateral views the left leg on 4 images Bone mineralization, joint spaces and alignment are maintained. There is soft tissue swelling present . Spurring is present tibiotalar joint. There is a plantar calcaneal spur. Some arthropathy present a t the intertarsal joints of the left foot. IMPRESSION: No fracture or dislocation. Correlate for edema, cellulitis, ecchymosis.
== END | disposition home or self-care (01) ==
LOC: RADXRMAIN 13:00
PROVIDERS: ATTEND Internal Medicine
DX: S89.92XA Unspecified injury of left lower leg, initial encounter (principal)

== ENCOUNTER → 2022-08-24 | Outpatient (CLI) | payer BC ==
[2022-08-24 15:04] LABS: Chol/HDL Ratio 4.05 Ratio; LDL Cholesterol,Calculated 146.4 mg/dL (0.0-131.0)
[2022-08-24 15:05] LABS: ALT 22 U/L (8-44); AST 20 U/L (13-35); Albumin 4.3 g/dL (3.8-4.9); Albumin/Globulin Ratio 1.69 (1.60-3.17); Alkaline Phosphatase 36 U/L (41-126); Bilirubin, Conjugated <0.20 mg/dL (0.20-0.40); Globulin 2.6 g/dL (1.6-3.3); Total Protein 6.9 g/dL (6.2-8.2)
== END | disposition home or self-care (01) ==
LOC: LABWHC1 09:00
PROVIDERS: ATTEND Internal Medicine
DX: I10 Essential (primary) hypertension (principal); E11.9 Type 2 diabetes mellitus without complications; E78.5 Hyperlipidemia, unspecified; G89.29 Other chronic pain
CPT/HCPCS: 36415; 80061; 80076; 83036; 84439; 84443; 84481; 85652; 86140